=== PATIENT | female | born 1960 | race Caucasian/White ===

== ENCOUNTER 2020-09-22 05:31 | Day surgery (SDC) | payer BC ==
[2020-09-17 10:45] LABS: BASOPHILS % (AUTO) 0.6 % (0-1); EOSINOPHILS # (AUTO) 0.2 X10'3 (0-0.9); EOSINOPHILS % (AUTO) 2.3 % (0-6); LYMPHOCYTES # (AUTO) 2.2 X10'3 (1.1-4.8); LYMPHOCYTES % (AUTO) 28.6 % (21-51); MEAN CORPUSCULAR HEMOGLOBIN 31.6 PG (27.0-31.0); MEAN CORPUSCULAR HGB CONC 33.8 g/dL (33.0-36.5); MEAN CORPUSCULAR VOLUME 93.5 FL (78-98); MEAN PLATELET VOLUME 10.5 FL (7.4-10.4); MONOCYTES # (AUTO) 0.5 X10'3 (0-0.9); MONOCYTES % (AUTO) 6.1 % (2-12); NEUTROPHILS # (AUTO) 4.9 X10'3 (1.8-7.7); NEUTROPHILS % (AUTO) 62.4 % (42-75); PRE OP HEMOGLOBIN 14.2 g/dL (12.0-16.0); PRE OP PLATELET COUNT 188 X10'3 (140-440); RED BLOOD COUNT 4.49 X10'6 (4.20-5.60); RED CELL DISTRIBUTION WIDTH 12.7 % (11.5-14.5)
[2020-09-17 10:53] LABS: PRE OP PROTIME 10.2 SECONDS (9.0-12.0)
[2020-09-17 10:57] LABS: ALKALINE PHOSPHATASE 109 IU/L (46-116); BLOOD UREA NITROGEN 13 MG/DL (7-18); BUN/CREATININE RATIO 15.1 (6.6-38.0); CALCIUM 9.2 MG/DL (8.5-10.1); CHLORIDE 105 MMOL/L (99-107); CREATININE 0.86 MG/DL (0.40-0.90); PRE OP ALT 21 U/L (30-65); PRE OP ANION GAP 7 (8-16); PRE OP AST 16 U/L (10-37); PRE OP BILIRUB, TOTAL 0.2 MG/DL (0.0-1.0); PRE OP GLUCOSE 100 MG/DL (70-104); PRE OP POTASSIUM 4.6 MMOL/L (3.4-5.1); PRE OP SODIUM 142 MMOL/L (135-145); TOTAL CARBON DIOXIDE 29.6 MMOL/L (24-32); eGFR 68 ML/MIN
[~2020-09-22] VITALS: Ht 167.6 cm; Wt 81.0 kg
[2020-09-22] VITALS (17 sets, daily range): BP systolic 111–141; BP diastolic 53–79
[~2020-09-22 05:31] MED LIST: ALPR1TAB7 PO; CARB200T40 PO; DOCUMENT DATE & TIME OF BETA-BLOCKER PO ONE; METO50TA16 PO; SIMV-42 PO; ceFAZolin 2gm in dextrose, iso 50 ML IV ONE; famotidine 20mg tablet PO ONE; tranexamic acid 1gm/0.7% sal. 100 ML IV ONE; vancomycin 1,500 MG in NS 300ml IV soln IV ONE
[2020-09-22] MEDS ORDERED: LIDOcaine 1% (10mg/ml) 2ml vial ONE (05:52)
[2020-09-22] MEDS: ringers solution, lacted 1,000 ML IV SCH ×2 (06:03→11:45)
[2020-09-22] MEDS ORDERED: ceFAZolin inj. 3,000 MG in sodium chloride irrig. sol 3,000 ML IR ONE (06:10)
[2020-09-22] MEDS ORDERED: ketorolac trometh. 30mg/ml inj. ONE (07:14)
[2020-09-22] MEDS ORDERED: sevoflurane 250ml liquid IH ONE (07:14)
[2020-09-22] MEDS ORDERED: tetracaine 1% (10mg/ml) pres. free inj. ONE (07:16)
[2020-09-22] MEDS ORDERED: morphine /PF 1mg/ml 10ml inj. ONE (07:19)
[2020-09-22] MEDS ORDERED: MIDAZolam 5mg/5ml vial ONE (07:52)
[2020-09-22] MEDS ORDERED: rocuronium 10mg/ml inj IV ONE (07:53)
[2020-09-22] MEDS ORDERED: propofol inj 20 ML IV ONE (07:53)
[2020-09-22] MEDS ORDERED: dexamethasone sod phosphate 4mg/ml inj. ONE (07:53)
[2020-09-22] MEDS ORDERED: LIDOcaine 2% (20mg/ml) 5ml vial ONE (07:53)
[2020-09-22] MEDS ORDERED: ondansetron/PF 4mg/2ml inj ONE (07:54)
[2020-09-22] MEDS ORDERED: ePHEDrine 50MG/ML INJ. ONE (07:59)
[2020-09-22] MEDS ORDERED: 0.9 % SODIUM CHLORIDE 10 ML VIAL ONE (07:59)
[2020-09-22] MEDS ORDERED: diphenhydrAMINE 50 mg/ml inj IV PRN (08:05)
[2020-09-22] MEDS ORDERED: hydrALAZINE 20mg/ml inj. IV PRN (08:05)
[2020-09-22] MEDS ORDERED: ringers solution, lacted 1,000 ML IV SCH (08:05)
[2020-09-22] MEDS ORDERED: ondansetron/PF 4mg/2ml inj IV PRN ×2 (08:05)
[2020-09-22] MEDS ORDERED: naloxone 2mg/2ml inj 2 MG in normal saline 500ml IV soln 500 ML IV PRN (08:05)
[2020-09-22] MEDS ORDERED: proCHLORperazine 10 MG/2 ml inj IV PRN (08:05)
[2020-09-22] MEDS ORDERED: labetalol 20mg/4ml (5mg/ml) syringe IV PRN (08:05)
[2020-09-22] MEDS ORDERED: acetaminophen 1,000mg/100ml IV 100 ML IV PRN (08:05)
[2020-09-22] MEDS ORDERED: morphine 4 MG/ML inj SYRINge IV PRN (08:05)
[2020-09-22] MEDS ORDERED: meperidine/PF 25mg/ml syringe IV PRN ×3 (08:05)
[2020-09-22] MEDS ORDERED: morphine 2 MG/ML inj. syringe IV PRN (08:05)
[2020-09-22] MEDS ORDERED: glycopyrrolate 0.2mg/ml inj ONE (09:54)
[2020-09-22] MEDS ORDERED: neostigmine methylsulfate 1 MG/ML 10ml vial ONE (09:54)
[2020-09-22] MEDS ORDERED: phenylephrine 10mg/ml inj. ONE (09:55)
[2020-09-22] MEDS ORDERED: morphine 10mg/ml inj. ONE (09:55)
--- NOTE | 2020-09-22 10:16 | NUR ---
Received from OR via , accompanied by Anesthesiologist DR MCHUGH and report given by Anesthesiolgist. AWAKENS TO VOICE. VITALS STABLE. DRESSING DI. GURVINDER PAIN. SENSATION AT BILAT FEET. MEDINA WITH CLEAR URINE.
[2020-09-22] MEDS ORDERED: diphenhydrAMINE 25mg capsule PO PRN ×2 (10:20)
[2020-09-22] MEDS ORDERED: ALPRAZolam 0.5mg tablet PO PRN (10:20)
[2020-09-22] MEDS ORDERED: bisacodyl 10mg suppository rectal RC PRN (10:20)
[2020-09-22] MEDS ORDERED: acetaminophen 325mg tablet PO PRN (10:20)
[2020-09-22] MEDS ORDERED: HYDROmorphone 1 mg/ml syringe IV PRN (10:20)
[2020-09-22] MEDS ORDERED: HYDROcodone/acetaminophen 10/325mg tab PO PRN ×2 (10:20)
[2020-09-22] MEDS ORDERED: magnesium hydroxide 30ml (MOM) UD suspension PO PRN (10:20)
--- NOTE | 2020-09-22 11:11 | NUR ---
Patient in room . I have received report from Eric HENDERSON and had the opportunity to ask questions awaiting patients arrival to floor
--- NOTE | 2020-09-22 11:16 | NUR ---
Report called to receiving nurse. Transferred via BED Belongings . Special Issues communicated to receiving nurse. AWAKE AND ORIENTED. VITALS STABLE. DRESSING DI. GURVINDER PAIN. TO SURGICAL RM 346B AT THIS TIME.
--- NOTE | 2020-09-22 11:17 | NUR ---
Patient in room [facility]. I have received report from Eric HENDERSON and had the opportunity to ask questions and assume patient care.patient orientated to room.VSS. Sleeping.palpable pulse linda right hip. Abductor pillow in place. Tarun dressing in place. Wounds x2 to right hip CDI.
--- NOTE | 2020-09-22 13:40 | NUR ---
patient c/o nausea observed emesis [id number] whitish drainage. medicated with compazine with effect. will continue to monitor.
[2020-09-22] MEDS: ketorolac trometh. 30mg/ml inj. IV SCH ×2 (13:43→20:18)
[2020-09-22] MEDS: potassium Cl 20mEq in NS 1,000 ML IV SCH (15:28)
[2020-09-22] MEDS: ceFAZolin/D5W- 1GM premix 50 ML IV SCH (15:29)
[2020-09-22] MEDS: ondansetron/PF 4mg/2ml inj IV PRN (16:48)
--- NOTE | 2020-09-22 17:04 | NUR ---
patient reported more emesis. medicated with zofran. BS 145. offered crackers to settle stomach as requested. patient stated she is a "lightweight" with regards anesthetic. will continue to monitor.
[2020-09-22] MEDS: aspirin 81mg tablet.DR PO SCH (17:50)
--- NOTE | 2020-09-22 18:39 | NUR ---
Problems reprioritized. Patient report given, questions answered & plan of care reviewed with Neyda HENDERSON.
--- NOTE | 2020-09-22 18:40 | NUR ---
Patient in room [facility]. I have received report from MARIO HENDERSON and had the opportunity to ask questions and assume patient care.
[2020-09-22] MEDS ORDERED: vancomycin/NS 1 GM ADD-VANTAGE 250 ML IV SCH (20:00)
[2020-09-22] MEDS: metoprolol tartrate 25mg tablet PO SCH (20:23)
[2020-09-22] MEDS: carBAMazepine 100mg chewable tablet PO SCH (20:24)
[2020-09-22] MEDS ORDERED: sennosides 8.6mg tablet PO SCH (21:00)
[2020-09-23] VITALS: BP 133/47
[2020-09-23] MEDS: ceFAZolin/D5W- 1GM premix 50 ML IV SCH (00:10)
[2020-09-23] MEDS: ketorolac trometh. 30mg/ml inj. IV SCH ×2 (02:46→07:23)
[2020-09-23] MEDS: potassium Cl 20mEq in NS 1,000 ML IV SCH (02:48)
[2020-09-23 04:00] VITALS: BP 112/57
[2020-09-23] MEDS: ondansetron/PF 4mg/2ml inj IV PRN (05:25)
--- NOTE | 2020-09-23 06:05 | NUR ---
Problems reprioritized. Patient report given, questions answered & plan of care reviewed with GLORIA HENDERSON.
--- NOTE | 2020-09-23 06:20 | NUR ---
Patient in room [facility]. I have received report from Neyda and had the opportunity to ask questions and assume patient care.
[2020-09-23 06:31] LABS: BASOPHILS # (AUTO) 0.1 X10'3 (0-0.2); BASOPHILS % (AUTO) 0.8 % (0-1); EOSINOPHILS # (AUTO) 0.1 X10'3 (0-0.9); EOSINOPHILS % (AUTO) 0.9 % (0-6); HEMATOCRIT 32.7 % (35.0-45.0); HEMOGLOBIN 11.1 g/dl (12.0-16.0); LYMPHOCYTES # (AUTO) 2.4 X10'3 (1.1-4.8); LYMPHOCYTES % (AUTO) 27.1 % (21-51); MEAN CORPUSCULAR HEMOGLOBIN 31.9 PG (27.0-31.0); MEAN CORPUSCULAR HGB CONC 33.9 g/dL (33.0-36.5); MEAN CORPUSCULAR VOLUME 94.1 FL (78-98); MEAN PLATELET VOLUME 10.7 FL (7.4-10.4); MONOCYTES # (AUTO) 0.7 X10'3 (0-0.9); MONOCYTES % (AUTO) 8.1 % (2-12); NEUTROPHILS # (AUTO) 5.5 X10'3 (1.8-7.7); NEUTROPHILS % (AUTO) 63.1 % (42-75); PLATELET COUNT 136 X10'3 (140-440); RED BLOOD COUNT 3.48 X10'6 (4.20-5.60); RED CELL DISTRIBUTION WIDTH 12.9 % (11.5-14.5); WHITE BLOOD COUNT 8.7 X10'3 (4.5-11.0)
[2020-09-23 06:43] LABS: ALANINE AMINOTRANSFERASE 16 U/L (12-78); ALBUMIN 2.7 G/DL (3.4-5.0); ALBUMIN/GLOBULIN RATIO 0.9 (1.1-1.5); ALKALINE PHOSPHATASE 72 IU/L (46-116); ANION GAP 6 (8-16); ASPARTATE AMINO TRANSFERASE 18 U/L (10-37); BILIRUBIN,TOTAL 0.2 MG/DL (0.1-1.0); BLOOD UREA NITROGEN 15 MG/DL (7-18); BUN/CREATININE RATIO 22.4 (6.6-38.0); CALCIUM 7.6 MG/DL (8.5-10.1); CHLORIDE 108 MMOL/L (99-107); CREATININE 0.67 MG/DL (0.40-0.90); GLUCOSE 104 MG/DL (70-104); POTASSIUM 4.2 MMOL/L (3.5-5.1); SODIUM 141 MMOL/L (135-145); TOTAL CARBON DIOXIDE 26.9 MMOL/L (24-32); TOTAL PROTEIN 5.7 G/DL (6.4-8.2); eGFR > 90 ML/MIN
[2020-09-23] MEDS ORDERED: ASPI-1071 PO (06:57)
[2020-09-23] MEDS ORDERED: HYDR-3965 PO (06:57)
[2020-09-23 07:15] VITALS: BP 122/56
[2020-09-23] MEDS: aspirin 81mg tablet.DR PO SCH (07:23)
[2020-09-23 07:28] VITALS: BP_SYST 101
[2020-09-23] MEDS: metoprolol tartrate 25mg tablet PO SCH (07:28)
[2020-09-23] MEDS: carBAMazepine 100mg chewable tablet PO SCH (07:28)
== END 2020-09-23 09:56 | disposition home or self-care (01) ==
LOC: PAS 05:31 → SUR 3N 10:17 → PAS 09-23 09:56
PROVIDERS: ATTEND Orthopaedic Surgery
DX: M16.11 Unilateral primary osteoarthritis, right hip (principal); Z20.822 Contact with and (suspected) exposure to COVID-19; I25.10 Atherosclerotic heart disease of native coronary artery without angina pectoris; G40.909 Epilepsy, unspecified, not intractable, without status epilepticus; F41.9 Anxiety disorder, unspecified; K21.9 Gastro-esophageal reflux disease without esophagitis; I25.2 Old myocardial infarction; Z79.01 Long term (current) use of anticoagulants; Z79.899 Other long term (current) drug therapy; Z95.5 Presence of coronary angioplasty implant and graft; Z90.710 Acquired absence of both cervix and uterus; Z98.890 Other specified postprocedural states; Z87.891 Personal history of nicotine dependence
CPT/HCPCS: 27130; 36415; 80053; 82948; 85025; 85610; 85730; 86885; 86900; 86901; 86920; 87081; 87635; 97110; 97116; 97162; 97530; 97535; C1758; C1776; J0690; J0780; J1100; J1885; J2001; J2250; J2270; J2370; J2405; J2704; J2710; J3370; J3480; J7040; J7120; A4618; A7000; G0378; J3490

== ENCOUNTER 2021-04-23 09:52 | Day surgery (SDC) | payer BC ==
[2021-04-15 10:30] LABS: BASOPHILS % (AUTO) 0.7 % (0-1); EOSINOPHILS # (AUTO) 0.1 X10'3 (0-0.9); EOSINOPHILS % (AUTO) 1.5 % (0-6); LYMPHOCYTES # (AUTO) 1.3 X10'3 (1.1-4.8); LYMPHOCYTES % (AUTO) 18.9 % (21-51); MEAN CORPUSCULAR HEMOGLOBIN 31.8 PG (27.0-31.0); MEAN CORPUSCULAR HGB CONC 33.8 g/dL (33.0-36.5); MEAN CORPUSCULAR VOLUME 94.3 FL (78-98); MEAN PLATELET VOLUME 10.5 FL (7.4-10.4); MONOCYTES # (AUTO) 0.3 X10'3 (0-0.9); MONOCYTES % (AUTO) 4.7 % (2-12); NEUTROPHILS # (AUTO) 5.1 X10'3 (1.8-7.7); NEUTROPHILS % (AUTO) 74.2 % (42-75); PRE OP HEMATOCRIT 41.7 % (35.0-45.0); PRE OP HEMOGLOBIN 14.1 g/dL (12.0-16.0); PRE OP PLATELET COUNT 193 X10'3 (140-440); RED BLOOD COUNT 4.42 X10'6 (4.20-5.60); RED CELL DISTRIBUTION WIDTH 12.8 % (11.5-14.5)
[2021-04-15 10:43] LABS: ALBUMIN 3.9 G/DL (3.4-5.0); ALKALINE PHOSPHATASE 112 IU/L (46-116); BLOOD UREA NITROGEN 10 MG/DL (7-18); BUN/CREATININE RATIO 11.9 (6.6-38.0); CALCIUM 8.4 MG/DL (8.5-10.1); CHLORIDE 105 MMOL/L (99-107); CREATININE 0.84 MG/DL (0.40-0.90); PRE OP ALT 22 U/L (30-65); PRE OP ANION GAP 8 (8-16); PRE OP AST 15 U/L (10-37); PRE OP BILIRUB, TOTAL 0.2 MG/DL (0.0-1.0); PRE OP GLUCOSE 108 MG/DL (70-104); PRE OP POTASSIUM 4.2 MMOL/L (3.4-5.1); PRE OP SODIUM 141 MMOL/L (135-145); TOTAL CARBON DIOXIDE 28.2 MMOL/L (24-32); TOTAL PROTEIN 7.8 G/DL (6.4-8.2); eGFR 70 ML/MIN
[2021-04-15 10:47] LABS: PRE OP PROTIME 10.3 SECONDS (9.0-12.0)
[~2021-04-23] VITALS: Ht 167.6 cm; Wt 74.2 kg
[2021-04-23] VITALS (21 sets, daily range): BP systolic 123–164; BP diastolic 50–71
[2021-04-23] MEDS: ringers solution, lacted 1,000 ML IV SCH ×2 (06:20→18:19)
--- NOTE | 2021-04-23 09:25 | NUR ---
ADMITTED TO PACU FROM OR ACCOMPANIED BY ANESTHESIA. INTIAL PHYSICAL ASSESSMENT DONE AND RECORDED. REPORT RECEIVED FROM ANESTHESIA.
[~2021-04-23 09:52] MED LIST changes: +ALPRAZolam 0.5mg tablet PO PRN; +HYDROmorphone 1 mg/ml syringe IV PRN; +HYDROmorphone inj. 0.5 MG/0.5 ML DISP.SYRIN IV PRN; +LIDOcaine 1%/PF 5ML 10 MG/ML VIAL ONE; +MIDAZolam 1 MG/ML 5ML VIAL ONE; +acetaminophen 1,000mg/100ml IV 100 ML IV ONE; +bisacodyl 10mg suppository rectal RC PRN; -ceFAZolin 2gm in dextrose, iso 50 ML IV ONE; +cefazolin/dext.iso 2gm/100ml IV ONE; +diphenhydrAMINE 25mg capsule PO PRN; +diphenhydrAMINE 50 mg/ml inj ONE; +fentaNYL/PF 50MCG/1 ML 2ML syringe ONE; +magnesium hydroxide 30ml (MOM) UD suspension PO PRN; +meperidine/PF 25mg/ml syringe IV PRN; +morphine 2 MG/ML inj. syringe IV PRN; +morphine 4 MG/ML inj SYRINge IV PRN; +ondansetron/PF 4mg/2ml inj IV PRN; +proCHLORperazine 10 MG/2 ml inj IV PRN; +propofol inj 40 ML IV ONE; +ringers solution, lacted 1,000 ML IV SCH; +tetracaine 1% (10mg/ml) pres. free inj. ONE; +vancomycin 1,000mg inj ONE
--- NOTE | 2021-04-23 11:00 | NUR ---
PACU DISCHARGE CRITERIA MET, REPORT GIVEN TO FLOOR. DENIES PAIN OR DISCOMFORT. PT IS STABLE AND ADEQUATELY RECOVERED FROM ANESTHESIA. PT HAS STABLE AIRWAY PATENCY, RESPIRATORY FUNCTION TO INCLUDE RESPIRATORY RATE AND O2 SAT. HEART RATE, BLOOD PRESSURE STABLE AND HYDRATION ADEQUATE. MENTAL STATUS IS APPROPRIATE. PAIN AND NAUSEA CONTROLLED. REFER TO PACU SPREADSHEET FOR VITAL SIGNS.
[2021-04-23] MEDS: HYDROcodone/acetaminophen 10/325mg tab PO PRN ×3 (13:44→23:13)
[2021-04-23] MEDS: ceFAZolin/D5W- 1GM premix 50 ML IV SCH ×2 (16:04→23:12)
--- NOTE | 2021-04-23 18:09 | NUR ---
Problems reprioritized. Patient report given,BEATRIZ Pina questions answered & plan of care reviewed with .
[2021-04-23] MEDS: aspirin 81mg, enteric-coated 1 TAB TABLET.DR PO SCH (18:12)
--- NOTE | 2021-04-23 18:15 | NUR ---
Patient in room [facility]. I have received report from Becca HENDERSON and had the opportunity to ask questions and assume patient care.
[2021-04-23] MEDS: potassium Cl 20mEq in NS 1,000 ML IV SCH ×3 (18:16→23:11)
[2021-04-23] MEDS: ondansetron/PF 4mg/2ml inj IV PRN (18:48)
[2021-04-23] MEDS: metoprolol tartrate 25mg tablet PO SCH (20:00)
[2021-04-23] MEDS ORDERED: vancomycin/NS 1 GM ADD-VANTAGE 250 ML IV SCH (20:00)
[2021-04-23] MEDS: carBAMazepine 100mg chewable tablet PO SCH (21:07)
[2021-04-23] MEDS: sennosides 8.6mg tablet PO SCH (21:08)
[2021-04-24 02:00] VITALS: BP 172/67
[2021-04-24] MEDS: ondansetron/PF 4mg/2ml inj IV PRN ×2 (03:28→12:42)
[2021-04-24] MEDS: HYDROcodone/acetaminophen 10/325mg tab PO PRN ×3 (03:34→12:11)
--- NOTE | 2021-04-24 05:38 | NUR ---
16 slovenian catheter removed without difficulty Addendum: 04/24/21 at 0538 by Nita Christy RN Amended: Links added.
[2021-04-24] MEDS: acetaminophen 325mg tablet PO PRN ×2 (05:42→21:34)
[2021-04-24 06:00] VITALS: BP 165/76
--- NOTE | 2021-04-24 06:24 | NUR ---
Problems reprioritized. Patient report given, questions answered & plan of care reviewed with Becca HENDERSON.
--- NOTE | 2021-04-24 06:28 | NUR ---
Patient in room [facility]. I have received report from BEATRIZ balderas and had the opportunity to ask questions and assume patient care.
[2021-04-24] MEDS: carBAMazepine 100mg chewable tablet PO SCH ×2 (07:32→21:10)
[2021-04-24] MEDS: aspirin 81mg, enteric-coated 1 TAB TABLET.DR PO SCH ×2 (07:32→17:22)
[2021-04-24] MEDS: metoprolol tartrate 25mg tablet PO SCH ×2 (08:00→21:09)
[2021-04-24 10:00] VITALS: BP 138/61
--- NOTE | 2021-04-24 12:22 | NUR ---
Joint surgery consult: Pt s/p L hip surgery this admit. On regular diet refused dinner last night and breakfast this AM w/ nausea yesterday per EMR. Pt seen by RD for written/verbal high protein ed w/ RD contact information provided. Pt reports nausea now resolved and appetite typically low after surgery for her w/ no current food preferences at this time. Pt does drink premier protein at home and has them ready for when discharged. RD encouraged pt to contact dietitian's office if further questions/concerns and to let RN know if any food preferences this admit. Addendum: 04/24/21 at [address] Amended: Links added.
[2021-04-24] MEDS: lactose-reduced food (Ensure Enlive) - 237ml bottle PO SCH ×2 (13:10→18:00)
[2021-04-24] MEDS ORDERED: ketorolac trometh. 30mg/ml inj. IV PRN (16:05)
--- NOTE | 2021-04-24 18:35 | NUR ---
Problems reprioritized. Patient report given,BEATRIZ Cardenas questions answered & plan of care reviewed with .
[2021-04-24 19:00] VITALS: BP 152/66
--- NOTE | 2021-04-24 19:30 | NUR ---
denies need for analgesic at this time; aware to call for PRN analgesic Addendum: 04/25/21 at 0413 by Michelle Glass RN Amended: Links added.
[2021-04-24] MEDS: sennosides 8.6mg tablet PO SCH (21:09)
[2021-04-24 21:30] VITALS: BP 148/69
[2021-04-25] MEDS: potassium Cl 20mEq in NS 1,000 ML IV SCH (01:45)
[2021-04-25] MEDS: acetaminophen 325mg tablet PO PRN ×2 (03:20→08:32)
[2021-04-25 06:00] VITALS: BP 127/62
--- NOTE | 2021-04-25 06:14 | NUR ---
Patient in room [facility]. I have received report from BEATRIZ Meyer and had the opportunity to ask questions and assume patient care.
[2021-04-25] MEDS: lactose-reduced food (Ensure Enlive) - 237ml bottle PO SCH (08:29)
[2021-04-25] MEDS: aspirin 81mg, enteric-coated 1 TAB TABLET.DR PO SCH (08:32)
[2021-04-25] MEDS: carBAMazepine 100mg chewable tablet PO SCH (08:34)
[2021-04-25] MEDS: metoprolol tartrate 25mg tablet PO SCH (08:34)
[2021-04-25 10:00] VITALS: BP 136/60
--- NOTE | 2021-04-25 11:15 | NUR ---
Reviewed d/c instructions, educational materials, incision care, f/u apts, medications. Pt ambulated 300+ feet prior to d/c. Removed PIC from ()L hand w/out complications. Tip intact. Pt left facility in stable condition.
== END 2021-04-25 11:15 | disposition home or self-care (01) ==
LOC: ORTHO 4S 09:52 → PAS 09:52
PROVIDERS: ATTEND Orthopaedic Surgery
DX: M16.12 Unilateral primary osteoarthritis, left hip (principal); I10 Essential (primary) hypertension; I25.2 Old myocardial infarction; G40.909 Epilepsy, unspecified, not intractable, without status epilepticus; G89.29 Other chronic pain; F41.9 Anxiety disorder, unspecified; K21.9 Gastro-esophageal reflux disease without esophagitis; Z20.822 Contact with and (suspected) exposure to COVID-19; Z90.710 Acquired absence of both cervix and uterus; Z98.890 Other specified postprocedural states; Z95.5 Presence of coronary angioplasty implant and graft; Z87.891 Personal history of nicotine dependence; Z79.899 Other long term (current) drug therapy; Z79.01 Long term (current) use of anticoagulants
CPT/HCPCS: 27130; 36415; 80053; 82948; 85025; 85610; 85730; 86885; 86900; 86901; 86920; 87081; 93005; 97530; C1758; C1776; J0131; J0690; J1170; J1200; J2250; J2405; J2704; J3010; J3370; J3480; J7040; J7120; U0003; U0005; Z7506; Z7508; Z7512; A4618; A6258; A6449; A7000; A9272; G0378; J1885